=== PATIENT | male | born 2000 | race American Indian/Alaskan Native ===

== ENCOUNTER 2021-06-02 07:18 | Outpatient (CLI) | payer OTHER ==
--- NOTE | 2021-06-02 10:39 | Magnetic Resonance Report ---
MRI RIGHT ANKLE WITHOUT CONTRAST INDICATION / CLINICAL INFORMATION: RIGHT ANKLE INJURY, lat ankle pain, sports injury(basketball). TECHNIQUE: Multiplanar, multisequence MR images were obtained. No contrast used. COMPARISON: None available. FINDINGS: ACHILLES TENDON: There is distal/insertional Achilles tendinitis. PLANTAR FASCIA: No significant abnormality. POSTERIOR TIBIAL / FLEXOR TENDONS: Mild increased fluid within the posterior tibialis tendon sheath. PERONEAL TENDONS: No significant abnormality. ANTERIOR TIBIAL / EXTENSOR TENDONS: No significant abnormality. TALOFIBULAR LIGAMENTS: Chronically torn ATFL TIBIOFIBULAR LIGAMENTS: No significant abnormality. DISTAL TIBIOFIBULAR SYNDESMOSIS: No significant abnormality. CALCANEOFIBULAR LIGAMENT: No significant abnormality. DELTOID LIGAMENT: No significant abnormality. SPRING LIGAMENT: No significant abnormality. TIBIOTALAR JOINT SPACE: No chondrosis or articular cartilage defect. No significant joint effusion or synovitis. No intra-articular bodies. SUBTALAR JOINTS: No significant abnormality. SINUS TARSI: No significant abnormality. TARSAL TUNNEL: No significant abnormality. BONES / OTHER JOINTS: Mild edema within the anterior inferior talus. There is a minimally displaced a vulsion type fracture at the base of the fifth metatarsal with adjacent soft tissue edema. No osseous lesion. SUBCUTANEOUS SOFT TISSUES: Subcutaneous soft tissue edema overlying the dorsal lateral aspect of the midfoot and forefoot. ADDITIONAL FINDINGS: None. IMPRESSION: 1. Minimally displaced avulsion type fracture at the base of the fifth metatarsal. 2. Complete tear of ATFL, likely chronic. 3. Mild edema within the anterior inferior talus, may reflect low-grade bone contusion. 4. Distal Achilles tendinitis. Report dictated by: Hever Warren MD Report dictated on: 06/02/2021 8:22 AM I have reviewed the images, agree with this report, and edited this report as needed. Signer Name: Nestor Pascual MD Signed: 06/02/2021 10:35 AM Workstation Name: [id number]
== END 2021-06-02 07:19 | disposition home or self-care (01) ==
LOC: MRI 07:18
PROVIDERS: ATTEND Specialist
DX: S92.351A Displaced fracture of fifth metatarsal bone, right foot, initial encounter for closed fracture (principal); S92.354A Nondisplaced fracture of fifth metatarsal bone, right foot, initial encounter for closed fracture; M79.89 Other specified soft tissue disorders; M76.9 Unspecified enthesopathy, lower limb, excluding foot; X58.XXXA Exposure to other specified factors, initial encounter; Y93.89 Activity, other specified; Y92.89 Other specified places as the place of occurrence of the external cause; Y99.8 Other external cause status
CPT/HCPCS: 73721